=== PATIENT | female | born 1995 | race African-American/Black ===

== ENCOUNTER 2018-03-16 21:43 | Emergency (ER) | payer BC ==
[2018-03-17 00:22] LABS: ABS Basophils 0 10^3/ul (0-0.2); ABS Eosinophils 0 10^3/ul (0-0.6); ABS Lymphocytes 1.7 10^3/ul (1.0-4.8); ABS Monocytes 0.8 10^3/ul (0-0.8); ABS Nucleated RBC 0 10^3/ul; Eosinophil % 0.5 % (0-6); Hematocrit 41 % (35-47); Hemoglobin 13.4 g/dl (12.0-16.0); Lymphocyte % 16.3 % (25-47); Mean Corpuscular HGB Conc 33 g/dl (31-36); Mean Corpuscular Hemoglobin 29 pg (27-31); Mean Corpuscular Volume 87 fL (80-97); Mean Platelet Volume 9.3 um3 (7.4-10.4); Nucleated Red Blood Cells % 0; Platelet Count 236 10^3/ul (150-450); Red Blood Count 4.69 10^6/ul (4.00-5.40); Red Cell Distribution Width 14 % (10.5-15); White Blood Count 10.6 10^3/ul (3.5-10.8)
[2018-03-17 00:38] LABS: EGFR Non-African American 66.8 (>60)
[2018-03-17] MEDS ORDERED: diPHENhydraMINE PO* 25 MG PO ONE (00:51)
[2018-03-17] MEDS ORDERED: Ketorolac TAB * 10 MG TAB PO PRN (00:51)
[2018-03-17] MEDS ORDERED: Lidocaine 2% VISCOUS* 15 ML UDC PO ONE (00:51)
[2018-03-17] MEDS ORDERED: Metoclopramide TAB* 10 MG PO ONE (00:51)
--- NOTE | 2018-03-17 02:28 | ED ---
Influenza-Like Illness - HPI Summary HPI Summary: Patient complains of headache, body aches, subjective fever, sore throat, decreased appetite 2 days. Denies cough, CP, SOB, abdominal pain, N/V/D, change in urine, vaginal symptoms. Medical history is asthma, seasonal allergies. - History of Current Complaint Chief Complaint: EDThroatPain Time Seen by Provider: 03/16/18 23:59 Hx Obtained From: Patient Onset/Duration: Gradual Onset, Lasting Days Severity: Moderate Associated Signs & Symptoms: Fever, Myalgia, Sore Throat, Headache - Allergy/Home Medications Allergies/Adverse Reactions: Allergies Allergy/AdvReac Type Severity Reaction Status Date / Time latex Allergy Hives Verified 03/17/18 00:01 Home Medications: Home Medications NK [No Home Medications Reported] 03/17/18 [History Confirmed 03/17/18] PMH/Surg Hx/FS Hx/Imm Hx Endocrine/Hematology History: Denies: Hx Anticoagulant Therapy Cardiovascular History: Denies: Hx Cardiac Arrest History: Denies: Hx Dialysis Neurological History: Denies: Hx CVA - Immunization History Date of Tetanus Vaccine: utd Date of Influenza Vaccine: Jun 2017 Immunizations Up to Date: Yes Infectious Disease History: No Infectious Disease History: Denies: Traveled Outside the [place] in Last 30 Days - Social History Occupation: Student Alcohol Use: Occasionally Substance Use Type: Reports: None Smoking Status (MU): Current Some Day Smoker Review of Systems Positive: Fever Eyes: Negative Positive: Sore Throat Cardiovascular: Negative Positive: Cough Positive: Abdominal Pain Genitourinary: Negative Positive: Myalgia Skin: Negative Positive: Headache Psychological: Normal All Other Systems Reviewed And Are Negative: Yes Physical Exam - Summary Physical Exam Summary: Patient alert, oriented. Full range of motion of neck. No pain with flexion or extension or rotation of neck. Triage Information Reviewed: Yes Vital Signs On Initial Exam: Initial Vitals Temp Pulse Resp BP Pulse Ox 100.2 F 113 20 111/54 95 03/16/18 21:56 03/16/18 21:56 03/16/18 21:56 03/16/18 21:56 03/16/18 21:56 Vital Signs Reviewed: Yes Appearance: Positive: Well-Appearing Skin: Positive: Warm Head/Face: Positive: Normal Head/Face Inspection Eyes: Positive: Normal ENT: Positive: Pharyngeal erythema, TMs normal, Tonsillar swelling, Uvula midline. Negative: Tonsillar exudate, Trismus, Muffled voice, Hoarse voice Neck: Positive: Supple Respiratory/Lung Sounds: Positive: Clear to Auscultation Cardiovascular: Positive: Normal Abdomen Description: Positive: Nontender Musculoskeletal: Positive: Normal Neurological: Positive: Normal Psychiatric: Positive: Normal AVPU Assessment: Alert - Taiwo Coma Scale Best Eye Response: 4 - Spontaneous Best Motor Response: 6 - Obeys Commands Best Verbal Response: 5 - Oriented Coma Scale Total: 15 Diagnostics - Vital Signs Vital Signs Temp Pulse Resp BP Pulse Ox 03/16/18 21:56 100.2 F 113 20 111/54 95 - Laboratory Lab Results: Lab Results 03/17/18 03/17/18 03/17/18 Range/Units 00:15 00:15 00:16 WBC 10.6 (3.5-10.8) 10^3/ul RBC 4.69 (4.00-5.40) 10^6/ul Hgb 13.4 (12.0-16.0) g/dl Hct 41 (35-47) % MCV 87 (80-97) fL MCH 29 (27-31) pg MCHC 33 (31-36) g/dl RDW 14 (10.5-15) % Plt Count 236 (150-450) 10^3/ul MPV 9.3 (7.4-10.4) um3 Neut % (Auto) 75.0 (38-83) % Lymph % (Auto) 16.3 L (25-47) % Bacon % (Auto) 7.8 H (0-7) % Eos % (Auto) 0.5 (0-6) % Baso % (Auto) 0.4 (0-2) % Absolute Neuts (auto) 8.0 H (1.5-7.7) 10^3/ul Absolute Lymphs (auto) 1.7 (1.0-4.8) 10^3/ul Absolute Monos (auto) 0.8 (0-0.8) 10^3/ul Absolute Eos (auto) 0 (0-0.6) 10^3/ul Absolute Basos (auto) 0 (0-0.2) 10^3/ul Absolute Nucleated RBC 0 10^3/ul Nucleated RBC % 0 Sodium 135 (135-145) mmol/L Potassium 3.8 (3.5-5.0) mmol/L Chloride 103 (101-111) mmol/L Carbon Dioxide 24 (22-32) mmol/L Anion Gap 8 (2-11) mmol/L BUN 8 (6-24) mg/dL Creatinine 1.05 H (0.51-0.95) mg/dL Est GFR ( Amer) 80.8 (>60) Est GFR (Non-Af Amer) 66.8 (>60) BUN/Creatinine Ratio 7.6 L (8-20) Glucose 98 (70-100) mg/dL Lactic Acid 0.6 (0.5-2.0) mmol/L Calcium 9.2 (8.6-10.3) mg/dL Total Bilirubin 0.40 (0.2-1.0) mg/dL AST 14 (13-39) U/L ALT 15 (7-52) U/L Alkaline Phosphatase 64 (34-104) U/L C-Reactive Protein 26.90 H (<8.01) mg/L Total Protein 7.2 (6.4-8.9) g/dL Albumin 4.0 (3.2-5.2) g/dL Globulin 3.2 (2-4) g/dL Albumin/Globulin Ratio 1.3 (1-3) Influenza A (Rapid) (Negative) Influenza B (Rapid) (Negative) Group A Strep Rapid (Negative) 03/17/18 03/17/18 Range/Units 00:45 00:46 WBC (3.5-10.8) 10^3/ul RBC (4.00-5.40) 10^6/ul Hgb (12.0-16.0) g/dl Hct (35-47) % MCV (80-97) fL MCH (27-31) pg MCHC (31-36) g/dl RDW (10.5-15) % Plt Count (150-450) 10^3/ul MPV (7.4-10.4) um3 Neut % (Auto) (38-83) % Lymph % (Auto) (25-47) % Bacon % (Auto) (0-7) % Eos % (Auto) (0-6) % Baso % (Auto) (0-2) % Absolute Neuts (auto) (1.5-7.7) 10^3/ul Absolute Lymphs (auto) (1.0-4.8) 10^3/ul Absolute Monos (auto) (0-0.8) 10^3/ul Absolute Eos (auto) (0-0.6) 10^3/ul Absolute Basos (auto) (0-0.2) 10^3/ul Absolute Nucleated RBC 10^3/ul Nucleated RBC % Sodium (135-145) mmol/L Potassium (3.5-5.0) mmol/L Chloride (101-111) mmol/L Carbon Dioxide (22-32) mmol/L Anion Gap (2-11) mmol/L BUN (6-24) mg/dL Creatinine (0.51-0.95) mg/dL Est GFR ( Amer) (>60) Est GFR (Non-Af Amer) (>60) BUN/Creatinine Ratio (8-20) Glucose (70-100) mg/dL Lactic Acid (0.5-2.0) mmol/L Calcium (8.6-10.3) mg/dL Total Bilirubin (0.2-1.0) mg/dL AST (13-39) U/L ALT (7-52) U/L Alkaline Phosphatase (34-104) U/L C-Reactive Protein (<8.01) mg/L Total Protein (6.4-8.9) g/dL Albumin (3.2-5.2) g/dL Globulin (2-4) g/dL Albumin/Globulin Ratio (1-3) Influenza A (Rapid) Negative (Negative) Influenza B (Rapid) Negative (Negative) Group A Strep Rapid Negative (Negative) Result Diagrams: 03/17/18 00:16 03/17/18 00:15 Lab Statement: Any lab studies that have been ordered have been reviewed, and results considered in the medical decision making process. Flu Symptom Course/Dx - Course Course Of Treatment: Patient complains of headache, body aches, subjective fever , sore throat, decreased appetite 2 days. Denies cough, CP, SOB, abdominal pain, N/V/D, change in urine, vaginal symptoms. Medical history is asthma, seasonal allergies. Physical exam:Patient alert, oriented. Full range of motion of neck. No pain with flexion or extension or rotation of neck. Temperature 100.2. Tachycardic. Labs unremarkable. Negative for fluent strep. Headache reduced from 8/10-2/10 with migraine cocktail. Patient given additional Tylenol. Fever resolved with migraine cocktail as well. - Diagnoses Provider Diagnoses: Viral syndrome Discharge - Sign-Out/Discharge Documenting (check all that apply): Patient Departure - Discharge Plan Condition: Stable Disposition: HOME Patient Education Materials: Viral Syndrome (ED) Referrals: No Primary Care Phys,NOPCP [Primary Care Provider] - Additional Instructions: Plenty of fluids and rest. Take ibuprofen 600mg with benadryl 50mg up to three times a day for headache and body aches. Follow-up with primary care. Return to the ED for any new or worsening symptoms - Billing Disposition and Condition Condition: STABLE Disposition: Home
[2018-03-17] MEDS ORDERED: Butalb/Acetamin/Caff TAB* 1 TAB PO ONE (02:32)
[2018-03-17] MEDS ORDERED: Acetaminophen TAB* 325 MG PO ONE (02:32)
[2018-03-17 02:44] VITALS: BP 105/69
== END 2018-03-17 02:48 | disposition home or self-care (01) ==
LOC: ED 21:43
DX: B34.9 Viral infection, unspecified (principal); Z91.040 Latex allergy status; Z72.0 Tobacco use
CPT/HCPCS: 36415; 80053; 83605; 85025; 86140; 87651; 99283; A9270-GY

== ENCOUNTER 2019-08-28 20:48 | Emergency (ER) | payer BC ==
[2019-08-28 21:10] LABS: Urine Appearance Cloudy; Urine Bilirubin Negative (Negative); Urine Blood Negative (Negative); Urine Color Yellow; Urine Glucose Negative (Negative); Urine Ketones Negative (Negative); Urine Nitrite Negative (Negative); Urine Protein Negative (Negative); Urine Specific Gravity 1.006 (1.010-1.030); Urine Urobilinogen Negative (Negative)
[2019-08-28 21:10] LABS: ABS Lymphocytes 2.1 10^3/ul (1.0-4.8); ABS Monocytes 0.6 10^3/ul (0-0.8); ABS Neutrophils 6.8 10^3/ul (1.5-7.7); Eosinophil % 0.2 %; Hematocrit 43 % (35-47); Hemoglobin 14.2 g/dL (12.0-16.0); Lymphocyte % 21.7 %; Mean Corpuscular HGB Conc 33 g/dL (31-36); Mean Corpuscular Hemoglobin 30 pg (27-31); Mean Corpuscular Volume 89 fL (80-97); Mean Platelet Volume 9.6 fL (7.4-10.4); Nucleated Red Blood Cells % 0.1; Platelet Count 227 10^3/uL (150-450); Red Blood Count 4.79 10^6 /uL (3.70-4.87); Red Cell Distribution Width 14 % (10-15); White Blood Count 9.5 10^3/uL (3.5-10.8)
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
[2019-08-28 21:26] LABS: Urine Benzodiazepine Screen None Detected (None Detect); Urine Opiates Screen None Detected (None Detect)
[2019-08-28 21:26] LABS: ALT 12 U/L (7-52); AST 15 U/L (13-39); Albumin/Globulin Ratio 1.2 (1-3); Alkaline Phosphatase 58 U/L (34-104); Anion Gap 7 mmol/L (2-11); BUN/Creatinine Ratio 6.9 (8-20); Blood Urea Nitrogen 7 mg/dL (6-24); CO2 Carbon Dioxide 26 mmol/L (22-32); Calcium 9.8 mg/dL (8.6-10.3); Chloride 103 mmol/L (101-111); EGFR African American 83.7 (>60); EGFR Non-African American 69.2 (>60); Globulin 3.4 g/dL (2-4); Glucose 111 mg/dL (70-100); Potassium 3.9 mmol/L (3.5-5.0); Sodium 136 mmol/L (135-145); Total Protein 7.4 g/dL (6.4-8.9)
[2019-08-28 21:33] LABS: HCG Pregnancy < 0.60 mIU/mL
[2019-08-28 22:08] LABS: Alcohol < 10 mg/dL (<10); Salicylate < 2.50 mg/dL (<30)
[2019-08-28 22:16] LABS: Acetaminophen < 15 mcg/mL
[2019-08-28 23:31] VITALS: BP 117/84
== END 2019-08-28 23:00 | disposition home or self-care (01) ==
LOC: ED 20:48
DX: F32.9 Major depressive disorder, single episode, unspecified (principal); F41.9 Anxiety disorder, unspecified; F90.9 Attention-deficit hyperactivity disorder, unspecified type; E53.8 Deficiency of other specified B group vitamins; E55.9 Vitamin D deficiency, unspecified; D64.9 Anemia, unspecified; Z72.0 Tobacco use; Z79.899 Other long term (current) drug therapy
CPT/HCPCS: 36415; 80053; 80307; 80320; 80329; 81003; 84443; 84702; 85025; 99283; G0480

== ENCOUNTER 2019-09-08 17:02 | Emergency (ER) | payer BC ==
[2019-09-08] MEDS ORDERED: Acetaminophen TAB* 325 MG PO ONE (17:34)
--- NOTE | 2019-09-08 17:38 | ED ---
Syncope/Near Syncope - HPI Summary HPI Summary: 23-year-old female with no significant past medical history including now a past history of seizures presents to the emergency department today complaining of head injury yesterday evening. The patient states she was taking a hot shower last night when she felt lightheaded. Patient is unsure if she lost consciousness however she states she woke up and her roommate was asking if she was okay. Patient denies incontinence, tongue biting, postictal state, evidence of head trauma or bleeding. Patient currently endorses a 5 out of 10 headache with associated nausea but denies emesis prior to arrival. Patient denies neck pain. Patient has not taken any medication prior to arrival for alleviation of her symptoms. Patient otherwise feels well and denies fever, chest pain, abdominal pain, rash, vomiting, diarrhea. Patient does not take anticoagulants. - History Of Current Complaint Chief Complaint: EDDizziness Time Seen by Provider: 09/08/19 17:22 Hx Obtained From: Patient Onset/Duration: Sudden Onset Timing: Constant Context: Unwitnessed Activity At Onset: At Rest Alleviating Factor(s): Spontaneous Resolution Associated Signs And Symptoms: Headache - Allergies/Home Medications Allergies/Adverse Reactions: Allergies Allergy/AdvReac Type Severity Reaction Status Date / Time latex Allergy Hives Verified 09/08/19 17:21 venlafaxine Allergy Unknown Verified 09/08/19 17:21 Reaction Details Home Medications: Home Medications Guanfacine HCl [Guanfacine ER] 3 mg PO DAILY 08/28/19 [History Confirmed ] PMH/Surg Hx/FS Hx/Imm Hx Endocrine/Hematology History: Reports: Hx Anemia, Other Endocrine/Hematological Disorders - vitamin B12 and D3 deficiencies Denies: Hx Anticoagulant Therapy, Hx Diabetes Cardiovascular History: Denies: Hx Cardiac Arrest Respiratory History: Denies: Hx Asthma History: Denies: Hx Dialysis Neurological History: Denies: Hx CVA Psychiatric History: Reports: Hx Anxiety, Hx Attention Deficit Hyperactivity Disorder, Hx Depression, Hx Bipolar Disorder - being evaluated for Denies: Hx Eating Disorder, Hx Post Traumatic Stress Disorder, Hx Schizophrenia, Hx Suicide Attempt - Surgical History Surgery Procedure, Year, and Place: none - Immunization History Date of Tetanus Vaccine: utd Date of Influenza Vaccine: Jun 2017 Infectious Disease History: No Infectious Disease History: Denies: Traveled Outside the [place] in Last 30 Days - Family History Known Family History: Positive: Cardiac Disease - CHF, Diabetes, Other - Alzheimer's - Social History Alcohol Use: Occasionally Alcohol Amount: One Hx Substance Use: Yes Substance Use Type: Reports: Marijuana Substance Use Comment - Amount & Last Used: Last used marijuana earlier today, tried LSD once Hx Tobacco Use: Yes Smoking Status (MU): Current Some Day Smoker Review of Systems Constitutional: Negative Eyes: Negative ENT: Negative Cardiovascular: Negative Respiratory: Negative Positive: Nausea. Negative: Abdominal Pain, Vomiting, Diarrhea Genitourinary: Negative Musculoskeletal: Negative Skin: Negative Positive: Headache, Syncope. Negative: Weakness, Paresthesia, Numbness, Slurred Speech Psychological: Normal All Other Systems Reviewed And Are Negative: Yes Physical Exam - Summary Physical Exam Summary: Patient is in no acute distress. PERRLA, EOMI, finger-nose intact. Patient has no pain to palpation of the cervical spine. Patient has full range of motion of the neck. GCS 15. Triage Information Reviewed: Yes Vital Signs On Initial Exam: Initial Vitals Temp Pulse Resp BP Pulse Ox 97.6 F 80 16 87/71 92 09/08/19 17:17 09/08/19 17:17 09/08/19 17:17 09/08/19 17:17 09/08/19 17:17 Vital Signs Reviewed: Yes Appearance: Positive: Well-Appearing, No Pain Distress, Well-Nourished Skin: Positive: Warm, Skin Color Reflects Adequate Perfusion Eyes: Positive: EOMI, SUSIE ENT: Positive: Hearing grossly normal Respiratory/Lung Sounds: Positive: Clear to Auscultation, Breath Sounds Present Cardiovascular: Positive: RRR, S1, S2 Musculoskeletal: Positive: Strength/ROM Intact Neurological: Positive: Sensory/Motor Intact, Alert, Oriented to Person Place, Time, Normal Gait, Facial Symmetry, Speech Normal Psychiatric: Positive: Normal, Affect/Mood Appropriate AVPU Assessment: Alert Procedures - Sedation Patient Received Moderate/Deep Sedation with Procedure: No Diagnostics - Vital Signs Vital Signs Temp Pulse Resp BP Pulse Ox 09/08/19 17:17 97.6 F 80 16 87/71 92 - Laboratory Result Diagrams: 09/08/19 17:38 09/08/19 17:38 Lab Statement: Any lab studies that have been ordered have been reviewed, and results considered in the medical decision making process. Course/Dx Course Of Treatment: Patient was evaluated in the emergency department today for syncope. Vitals noted stable. CT imaging was deemed unnecessary according to need a head CT rules. Patient's neurological exam was within normal limits. Patient had full range of motion of the neck and fracture was considered very unlikely. EKG was unprompted which shows no evidence of STEMI. Normal sinus rhythm at a rate of 61 bpm. Normal axis, QT interval. Borderline prolonged OH interval at 208. There is benign minimal ST elevations noted in leads 2, V4, V5 , V6 which is likely benign early repolarization. There is no evidence of ischemia or ST depression. There are no priors available for comparison. Laboratory studies were done that showed no significant abnormalities including no evidence of anemia, electrolyte changes, infection. Orthostatic vital signs showed evidence of postural hypotension. There is no evidence of medical pathology requiring intervention at this time or evidence of significant trauma as result of patient fainting. Patient likely fainted due to vasovagal syncope or orthostatic hypotension. Patient discharged outpatient follow-up. - Diagnoses Differential Diagnosis/HQI/PQRI: Positive: Hypoglycemia, Seizure, Vasovagal Episode Provider Diagnoses: Syncope Discharge ED - Sign-Out/Discharge Documenting (check all that apply): Patient Departure - Discharge Plan Condition: Stable Disposition: HOME Patient Education Materials: Syncope (ED) Referrals: Esther MERRILL,Lakisha Ramos [Primary Care Provider] - 3 Days Additional Instructions: It appears you did not sustain any significant damage from fainting yesterday. Laboratory studies done today showed no evidence of medical pathology requiring intervention at this time. It is likely that you sustained a minor head injury during your fainting spell. You may take ibuprofen 600 mg every 6 hours as needed for headache. Please follow-up with your primary care provider in 3-5 days for further evaluation and management. Please return to the emergency department immediately should you develop any new or worsening symptoms. Increase rest, return to activity as tolerated. Limit screen time while recovering from headache. There is evidence that you have orthostatic hypotension. This is a change in blood pressure with changes in position. This could explain why you were lightheaded and fainted. Please change position slowly and follow up with your primary care provider. - Billing Disposition and Condition Condition: STABLE Disposition: Home - Attestation Statements Provider Attestation: I was available for consultation for this patient. I did not evaluate the patient or participate in any medical decision making or disposition decisions unless I am specifically named in the chart as having consulted on the patient. If I have consulted on the patient, please see my own ED note on the patient encounter. Alfonso Sutton MD
[2019-09-08 17:48] LABS: ABS Basophils 0.1 10^3/ul (0-0.2); ABS Eosinophils 0.1 10^3/ul (0-0.6); ABS Lymphocytes 3.2 10^3/ul (1.0-4.8); ABS Monocytes 0.7 10^3/ul (0-0.8); ABS Neutrophils 5.5 10^3/ul (1.5-7.7); Eosinophil % 1.2 %; Hematocrit 45 % (35-47); Hemoglobin 14.7 g/dL (12.0-16.0); Lymphocyte % 33.2 %; Mean Corpuscular HGB Conc 33 g/dL (31-36); Mean Corpuscular Hemoglobin 30 pg (27-31); Mean Corpuscular Volume 91 fL (80-97); Mean Platelet Volume 9.6 fL (7.4-10.4); Platelet Count 253 10^3/uL (150-450); Red Cell Distribution Width 15 % (10-15); White Blood Count 9.6 10^3/uL (3.5-10.8)
[2019-09-08 18:07] LABS: ALT 10 U/L (7-52); AST 11 U/L (13-39); Albumin/Globulin Ratio 1.3 (1-3); Alkaline Phosphatase 59 U/L (34-104); Anion Gap 6 mmol/L (2-11); BUN/Creatinine Ratio 9.4 (8-20); Blood Urea Nitrogen 9 mg/dL (6-24); CO2 Carbon Dioxide 28 mmol/L (22-32); Calcium 9.9 mg/dL (8.6-10.3); Chloride 103 mmol/L (101-111); EGFR African American 88.8 (>60); EGFR Non-African American 73.4 (>60); Globulin 3.2 g/dL (2-4); Glucose 100 mg/dL (70-100); Potassium 4.1 mmol/L (3.5-5.0); Sodium 137 mmol/L (135-145); Total Protein 7.2 g/dL (6.4-8.9)
[2019-09-08 18:13] LABS: HCG Pregnancy < 0.60 mIU/mL
[2019-09-08 18:27] LABS: TSH (Thyroid Stimulating Horm) 0.52 mcIU/mL (0.34-5.60)
[2019-09-08 18:54] VITALS: BP 104/75
== END 2019-09-08 18:51 | disposition home or self-care (01) ==
LOC: ED 17:02
DX: R55 Syncope and collapse (principal); S09.90XA Unspecified injury of head, initial encounter; R51 Headache; F90.9 Attention-deficit hyperactivity disorder, unspecified type; W19.XXXA Unspecified fall, initial encounter; Y92.9 Unspecified place or not applicable; Z91.040 Latex allergy status; Z79.899 Other long term (current) drug therapy; Z72.0 Tobacco use
CPT/HCPCS: 36415; 80053; 84443; 84702; 85025; 93005; 99282; A9270-GY